=== PATIENT | female | born 1985 | race Caucasian/White ===

== ENCOUNTER 2019-11-30 15:56 | Emergency (ER) | payer OTHER ==
[~2019-11-30] VITALS: Ht 172.7 cm; Wt 94.3 kg
[2019-11-30] MEDS ORDERED: BUPR100 PO (16:10)
[2019-11-30] MEDS ORDERED: AZULFIDINE500 MG PO (16:10)
[2019-11-30] MEDS ORDERED: BLOOD PRESSURE (16:10)
== END 2019-11-30 16:39 | disposition home or self-care (01) ==
LOC: ER 15:56
DX: S30.0XXA Contusion of lower back and pelvis, initial encounter (principal); F32.9 Major depressive disorder, single episode, unspecified; Z88.0 Allergy status to penicillin; Z79.899 Other long term (current) drug therapy; W19.XXXA Unspecified fall, initial encounter
CPT/HCPCS: 96372; 99283-25; J1885